=== PATIENT | male | born 1955 | race African-American/Black ===

== ENCOUNTER 2019-03-18 09:25 | Inpatient (IN) | payer MEDICAID ==
[~2019-03-18] VITALS: Ht 175.3 cm; Wt 90.9 kg
[2019-03-18] MEDS ORDERED: HUMULIN 70100 UNIT/1 (09:31)
[2019-03-18 10:15] VITALS: BP 137/81
[2019-03-18] MEDS ORDERED: LASIX40 MG (10:20)
[2019-03-18] MEDS ORDERED: NITROSTAT0.4 MG SL (10:20)
[2019-03-18] MEDS ORDERED: CARDIZEM CD180 MG PO (10:21)
[2019-03-18] MEDS ORDERED: SPIRIVA18 MCG INH (10:22)
[2019-03-18] MEDS ORDERED: ISOSORBIDE MONO30 M1 PO (10:22)
[2019-03-18] MEDS ORDERED: ELIQUIS5 MG PO (10:22)
[2019-03-18] MEDS ORDERED: FOLIC ACID1 MG PO (10:23)
[2019-03-18] MEDS ORDERED: LIPITOR40 MG PO (10:23)
[2019-03-18 10:24] LABS: BASOPHILS 0.2 % (0-2); EOSINOPHILS 1.3 % (0-7); IMMATURE GRANULOCYTES 0.3 % (0-5); LYMPHOCYTES 7.9 % (15-50); MCH 31.5 pg (26.0-34.0); MCHC 31.4 g/dL (31.0-37.0); MCV 100.5 fL (80.0-100.0); NEUTROPHILS 77.3 % (40-80); PLATELET COUNT 213 10x3/uL (130-400); RBC 2.19 10x6/uL (4.20-6.10); RDW 18.9 % (11.5-14.5)
[2019-03-18 10:28] LABS: APTT 44.1 SECONDS (22.8-39.4); INR 1.51 (0.85-1.17); PROTIME 17.6 SECONDS (11.6-15.0)
[2019-03-18 10:32] LABS: ANION GAP 15.6 mmol/L (8-16); BILIRUBIN - TOTAL 0.59 mg/dL (0.2-1.3); CALCIUM 8.3 mg/dL (8.5-10.1); CARBON DIOXIDE 19.6 mmol/L (21.0-32.0); CREATININE - SERUM 2.9 mg/dL (0.6-1.3); POTASSIUM - SERUM 4.2 mmol/L (3.5-5.1); PROTEIN - SERUM 6.9 g/dL (6.4-8.2)
[2019-03-18 10:37] LABS: HEMOGLOBIN 6.9 g/dL (13.5-17.5)
[2019-03-18 10:41] LABS: MAGNESIUM - SERUM 2.3 mg/dL (1.8-2.4); THYROID STIMULATING HORMONE 2.37 uIU/mL (0.36-3.74); TROPONIN-I 0.028 ng/mL (0.000-0.060)
[2019-03-18 11:28] LABS: APPEARANCE SL CLDY (CLEAR); BACTERIA MANY /hpf (NONE SEEN); BILIRUBIN NEGATIVE (NEGATIVE); COLOR YELLOW (YELLOW); EPITHELIAL CELLS OCC /hpf (0-5); GLUCOSE NEGATIVE (NEGATIVE); KETONE NEGATIVE (NEGATIVE); MUCUS <1+ /lpf (NONE SEEN); NITRITE NEGATIVE (NEGATIVE); PROTEIN TRACE mg/dL (NEGATIVE); RED CELLS - URINE 0-5 /hpf (0-5); SPECIFIC GRAVITY 1.015 (1.005-1.020); UROBILINOGEN NORMAL (NORMAL); WHITE CELLS - URINE 25-50 /hpf (0-5)
--- NOTE | 2019-03-18 12:02 | NUR ---
SPOKE WITH DR. AYALA REGARDING PT'S SUSTAINED HR OF 122, INSTRUCTED TO GIVE CARDIZEM PRIOR TO PT LEAVING ED TO ASSIGNED ROOM.
--- NOTE | 2019-03-18 12:30 | NUR ---
PT RECIEVED VIA [facility]CHER FROM ER. ALERT AND ORIENTED X4. NO ACUTE DISTRESS NOTED. WILL ASSESS AND START PLAN OF CARE.
[2019-03-18 12:50] VITALS: BP 102/45; BMI 29.6
--- NOTE | 2019-03-18 14:00 | NUR ---
[facility]
--- NOTE | 2019-03-18 15:03 | NUR ---
SPOKE WITH CONRAD FROM DEPARTMENT OF CORRECTIONS. MEDICATION LIST BEING SENT.
[2019-03-18 17:03] LABS: % SATURATION 17 % (15-55); IRON 43 ug/dl (35-150); TOTAL IRON BIND CAPACITY 240 ug/dl (260-445); UNSAT IRON BIND CAPACITY 197 ug/dl (150-375)
--- NOTE | 2019-03-18 18:44 | NUR ---
PT RECIEVED FROM DIALYSIS. NO DISTRESS NOTED. BED IN LOWEST POSITION. CALL LIGHT WITHIN REACH. WILL CONTINUE TO MONITOR.
--- NOTE | 2019-03-18 19:35 | NUR ---
PT UP IN SHOWER, INSPECTOR PRINTED CIRCUIT BOARDS AT BED SIDE.
[2019-03-18 20:00] VITALS: BP 121/63
--- NOTE | 2019-03-18 20:38 | NUR ---
HS MEDS GIVEN WITH FRESH ICE WATER. BS 93, TURKEY AMISHAWHVENANCIO PROVIDED AT PT REQUEST. GUARD REMAINS AT BED SIDE.
--- NOTE | 2019-03-19 00:31 | NUR ---
PT HAS ASKED MULTIPLE TIMES TO HAVE PIV TAKEN OUT, INFORMED BY THE LEAK GANG SUPERVISOR, HIS NURSE AND THE CHARGE NURSE THAT PER HOSPITAL POLICY ALL PTS NEED TO HAVE IV ACCESS FOR EMERGENCY PURPOSES. PT VERY ARGUMENTATIVE WITH ALL STAFF MEMBERS.
--- NOTE | 2019-03-19 00:56 | NUR ---
CL ANSWERED, PT ASKING TO TALK TO SOFTWARE DESIGN ANALYST. Kennedy TRIMBLE RN, AKSED TO COME SPEAK WITH PT.
--- NOTE | 2019-03-19 01:23 | NUR ---
CL ANSWERED, PT DEMANDING TO GREENSKEEPER LABORER AT THIS INSTANT, ALSO STATED THAT HE NEEDS SOMETHING ELSE BUT CANT THINK OF IT RIGHT NOW BUT WILL KEEP PRESSING HIS CL BUTTON UNTIL HE CAN REMEMBER WHAT HE WANTS.
--- NOTE | 2019-03-19 01:37 | NUR ---
BENADRYL GIVEN EARLY, REMINDED PT THAT HE CAN ONLY HAVE IT EVERY 6 HOURS, THE NEXT TIME HE CAN HAVE BENADRYL IS 07:30.
--- NOTE | 2019-03-19 01:39 | NUR ---
CULINARY ARTIST AT BED SIDE TO SPEAK WITH PT.
--- NOTE | 2019-03-19 01:54 | NUR ---
SOON HEAD OF HUMAN RESOURCES LEFT ROOM, PTS CL CAME ON, PT ASKING FOR COUGH MEDICINE, INFORMED PT THAT HE DIDNT HAVE COUGH SYRUP ORDERED.
--- NOTE | 2019-03-19 04:23 | NUR ---
CL ANSWERED, PT WITH TELEMETRY IN HIS HANDS, PT STATED THAT HE ISNT GOING TO WEAR IT ANY MORE, TELEMETRY BOX RETURNED TO ARCHITECTURAL COATING FINISHER.
[2019-03-19 05:07] LABS: BASOPHILS 0.3 % (0-2); EOSINOPHILS 1.4 % (0-7); HEMATOCRIT 25.4 % (42.0-54.0); IMMATURE GRANULOCYTES 0.3 % (0-5); LYMPHOCYTES 9.2 % (15-50); MCH 30.3 pg (26.0-34.0); MCHC 31.5 g/dL (31.0-37.0); MEAN PLATELET VOLUME 9.3 fL (7.4-10.4); MONOCYTES 11.1 % (2-11); NEUTROPHILS 77.7 % (40-80); PLATELET COUNT 207 10x3/uL (130-400); RDW 20.4 % (11.5-14.5); WBC 7.7 10x3/uL (4.8-10.8)
[2019-03-19 05:35] LABS: MCV 96.2 fL (80.0-100.0); RBC 2.64 10x6/uL (4.20-6.10)
[2019-03-19 05:39] LABS: INR 1.35 (0.85-1.17); PROTIME 16.1 SECONDS (11.6-15.0)
[2019-03-19 06:03] LABS: ANION GAP 17.4 mmol/L (8-16); BILIRUBIN - TOTAL 0.85 mg/dL (0.2-1.3); C-REACTIVE PROTEIN 1.7 mg/dL (0.0-0.9); CALCIUM 8.2 mg/dL (8.5-10.1); CARBON DIOXIDE 21.7 mmol/L (21.0-32.0); CREATININE - SERUM 2.9 mg/dL (0.6-1.3); MAGNESIUM - SERUM 2.2 mg/dL (1.8-2.4); POTASSIUM - SERUM 4.1 mmol/L (3.5-5.1); PROTEIN - SERUM 7.2 g/dL (6.4-8.2)
--- NOTE | 2019-03-19 07:30 | NUR ---
PRESENTS SITTING UP ON SIDE OF BED. ASSESSMENT DONE. C/O SOB. WAS PLACED BACK ON 2L NC WHICH HE TOOK OFF DURING THE NIGHT. DENIES PAIN OR NEEDS AT THIS TIME. CALL LIGHT WITHIN REACH. BED AT LOWEST POSITION. WILL CONTINUE TO MONITOR.
[2019-03-19 08:13] VITALS: BP 131/78
[2019-03-19 09:17] LABS: FOLATE (FOLIC ACID) - SERUM 13.5 ng/mL (>3.0)
--- NOTE | 2019-03-19 09:51 | NUR ---
I have reviewed this patient and I concur with the Shift Assessment completed by the Licensed Practical Nurse today this shift.
--- NOTE | 2019-03-19 11:53 | NUR ---
PT HAS SHACKLES TO BILATERAL LOWER EXTREMITIES. NO REDNESS NOTED TO AREA. ADC GUARD AT BEDSIDE.
--- NOTE | 2019-03-19 12:02 | NUR ---
PT STATES UNABLE TO OBTAIN STOOL SAMPLE FOR OCCULT BLOOD TEST.
[2019-03-19 12:21] VITALS: BP 137/69
[2019-03-19 13:15] VITALS: Ht 175.3 cm; Wt 90.9 kg
--- NOTE | 2019-03-19 14:11 | NUR ---
OXYGEN SAT 94% WHILE SITTING. WENT DOWN TO 84% WHEN PT GOT UP TO WALK. AFTER 2 MINUTES OF REAPPLYING OXYGEN 2L NC OXYGEN SAT CAME BACK UP TO 97%
--- NOTE | 2019-03-19 15:00 | NUR ---
STOOL SAMPLE COLLECTED AND SENT TO LAB. STOOL IS FORMED. BLACK AND TARRY IN APPEARANCE.
[2019-03-19 16:18] LABS: BASOPHILS 0.3 % (0-2); EOSINOPHILS 1.5 % (0-7); HEMOGLOBIN 7.9 g/dL (13.5-17.5); IMMATURE GRANULOCYTES 0.1 % (0-5); LYMPHOCYTES 9.6 % (15-50); MCH 30.6 pg (26.0-34.0); MCHC 31.6 g/dL (31.0-37.0); MCV 96.9 fL (80.0-100.0); MEAN PLATELET VOLUME 9.5 fL (7.4-10.4); NEUTROPHILS 77.5 % (40-80); PLATELET COUNT 198 10x3/uL (130-400); RBC 2.58 10x6/uL (4.20-6.10); RDW 20.5 % (11.5-14.5); WBC 7.4 10x3/uL (4.8-10.8)
[2019-03-19 16:47] VITALS: BP 135/76
--- NOTE | 2019-03-19 16:55 | NUR ---
H&H CALLED TO DR. ADRIEN WU. HE STATES H&H STABLE AND DOES NOT WANT TO ORDER ANY BLOOD AT THIS TIME. WILL RECHECK IN THE MORNING.
[2019-03-19 20:00] VITALS: BP 139/82
[2019-03-20] VITALS: BP 136/80
[2019-03-20 05:00] VITALS: BP 126/80
--- NOTE | 2019-03-20 06:14 | NUR ---
I have reviewed this patient and I concur with the Shift Assessment completed by the Licensed Practical Nurse today this shift.
--- NOTE | 2019-03-20 07:51 | NUR ---
RECIEVED REPORT. PATIENT IS ALERT AND ORIENTED AND THERE IS A GAURD AT BEDSIDE. PATIENT DOES NOT HAVE AN IV IN HIS RIGHT AC. SEARCH AND RESCUE OFFICER TOLD ME IN REPORT THAT HE HAD AN IV IN HIS RIGHT AC, HOWEVER PATIENT REPORTS THAT HE HAS NOT HAD IT SINCE YESTERDAY. HE HAS NO ORDERS IV, AND REPORTS THAT HE DOES NOT WANT AN IV PLACED BECAUSE HE SHOULD BE DISCHARGED AFTER HE GETS DIALYSIS TODAY. HE REPORTS THAT THE DR TOLD HIM HE WOULD GET BLOOD GIVIN DURING DIALYSIS AND THEN BE DISCHARGED BACKT TO THE JAIL.
[2019-03-20 08:22] LABS: BASOPHILS 0.5 % (0-2); EOSINOPHILS 2.1 % (0-7); HEMATOCRIT 24.2 % (42.0-54.0); HEMOGLOBIN 7.6 g/dL (13.5-17.5); IMMATURE GRANULOCYTES 0.4 % (0-5); LYMPHOCYTES 11.4 % (15-50); MCH 30.2 pg (26.0-34.0); MCHC 31.4 g/dL (31.0-37.0); MEAN PLATELET VOLUME 9.5 fL (7.4-10.4); MONOCYTES 16.3 % (2-11); NEUTROPHILS 69.3 % (40-80); PLATELET COUNT 227 10x3/uL (130-400); RBC 2.52 10x6/uL (4.20-6.10); RDW 20.2 % (11.5-14.5); WBC 7.5 10x3/uL (4.8-10.8)
[2019-03-20 08:25] LABS: ALBUMIN 3.1 g/dL (3.4-5.0); BILIRUBIN - TOTAL 0.83 mg/dL (0.2-1.3); CALCIUM 8.6 mg/dL (8.5-10.1); CARBON DIOXIDE 21.1 mmol/L (21.0-32.0); CREATININE - SERUM 3.3 mg/dL (0.6-1.3); MAGNESIUM - SERUM 2.3 mg/dL (1.8-2.4); POTASSIUM - SERUM 4.1 mmol/L (3.5-5.1)
--- NOTE | 2019-03-20 09:03 | NUR ---
PATIENT IS ALERT AND ORIENTED. GANEMOD AT BEDSIDE.
[2019-03-20 09:55] VITALS: BP 136/76
--- NOTE | 2019-03-20 12:25 | NUR ---
BRINGING PT TO DIALYSIS NOW.
[2019-03-20 12:49] VITALS: BP 114/70
--- NOTE | 2019-03-20 18:17 | MORECARE ---
CASE MANAGEMENT DISCHARGE SUMMARY PATIENT: DARSHAN JUAREZ UNIT: [id number] ADM DATE: 03/18/19 AGE: 63 : 57 SEX: M ROOM/BED: D.2129 AUTHOR: AARNO RANGEL PHYSICIAN: REFERRING PHYSICIAN: CAROLYN CÁRDENAS MD DATE OF SERVICE: 03/20/19 Discharge Plan Patient Name: DARSHAN JUAREZ [facility] : 1955 Planned Disposition: Court\Law Enforcement Anticipated Discharge Date: Discharge Date: Expected LOS: Initial Reviewer: [email or web address] Initial Review Date: 03/18/2019 Generated: 03/20/19 7:17 pm Comments DCP- Discharge Planning Updated by [email or web address]: Gisel Mckeon on 03/20/19 5:[address] PATIENT IS TO RETURN TO THE DEPT OF CORRECTIONS AT DISCHARGE IN [place]. Patient Name: DARSHAN JUAREZ Page 10051 at 1817 All edits/amendments must be made on the electronic document DICTATION DATE: 03/20/191815 STATIONARY EQUIPMENT MECHANIC: MARY 03/20/191815 RPT#: [id number] DC DATE: STATUS: ADM IN [facility] [address] [place] [address] END OF REPORT
--- NOTE | 2019-03-20 19:30 | NUR ---
RECEIVED REPORT, WILL ASSUME CARE OF PT, PT IS SITTING ON SIDE OF BED, REFUSING TO WEAR TELEMTRY, BED IS LOW, SRX2, CALL LIGHT IN REACH, WILL CONTINUE PLAN OF CARE, GUARD AT BEDSIDE,
[2019-03-20 20:00] VITALS: BP 116/67
[2019-03-21] VITALS: BP 121/69
--- NOTE | 2019-03-21 02:05 | NUR ---
SLEEPING, BED IS LOW, SRX2, CALL LIGHT IN REACH, WILL CONTINUE PLAN OF CARE
[2019-03-21 04:00] VITALS: BP 129/61
[2019-03-21 04:20] LABS: BASOPHILS 0.5 % (0-2); EOSINOPHILS 1.9 % (0-7); HEMATOCRIT 22.8 % (42.0-54.0); IMMATURE GRANULOCYTES 0.8 % (0-5); LYMPHOCYTES 14.2 % (15-50); MCH 30.7 pg (26.0-34.0); MCV 95.8 fL (80.0-100.0); MEAN PLATELET VOLUME 9.4 fL (7.4-10.4); MONOCYTES 15.7 % (2-11); NEUTROPHILS 66.9 % (40-80); PLATELET COUNT 210 10x3/uL (130-400); RBC 2.38 10x6/uL (4.20-6.10); RDW 20.3 % (11.5-14.5); WBC 7.8 10x3/uL (4.8-10.8)
[2019-03-21 04:22] LABS: HEMOGLOBIN 7.3 g/dL (13.5-17.5)
--- NOTE | 2019-03-21 04:38 | NUR ---
I have reviewed this patient and I concur with the Shift Assessment completed by the Licensed Practical Nurse today this shift.
[2019-03-21 04:40] LABS: ALBUMIN 2.8 g/dL (3.4-5.0); ANION GAP 17.8 mmol/L (8-16); BILIRUBIN - TOTAL 0.59 mg/dL (0.2-1.3); CALCIUM 8.2 mg/dL (8.5-10.1); CARBON DIOXIDE 20.2 mmol/L (21.0-32.0); MAGNESIUM - SERUM 2.3 mg/dL (1.8-2.4); PROTEIN - SERUM 6.9 g/dL (6.4-8.2)
--- NOTE | 2019-03-21 07:36 | NUR ---
RECIEVED REPORT. LOLA IS AT BEDSIDE. PATIENT DOES NOT HAVE AN IV AT THIS TIME. HIS H AND H IS LOW, AND HE RECIEVED BLOOD LAST SATURDAY. PATIENT IS RESTING WITH EYES CLOSED AT THIS TIME.
[2019-03-21 10:08] VITALS: BP 108/67
--- NOTE | 2019-03-21 12:46 | NUR ---
ANTHONY GONZALEZ ROUNDED AND I TOLD HER THIS PATIENT IS REFUSING AN IV AT THIS TIME. HE WANTS TO WAIT TO GET BLOOD WHEN HE GOES TO DIALYSIS ON SATURDAY. HE HAS TO SEE GASTROINTROLOGIST ON SATURDAY. LOLA IS AT BEDSIDE. PATIENT DENIES ANY OTHER NEEDS AT THIS TIME.
--- NOTE | 2019-03-21 14:05 | NUR ---
IV PLACED IN RIGHT FOREARM. PATIENT AGREED TO HAVE IV PLACED WHEN HE WAS INFORMED THAT HE HAS A NEW ORDER FOR ANTIBIOTICS. 22G ONE STICK
--- NOTE | 2019-03-21 16:24 | NUR ---
IV START IN RIGHT FOREARM BECAME DISLODGED SOON TRIED TO INFUSE THE ANTIBIOTIC. CHARGE NURSE MONICA ATTEMPTED IV AND WAS NOT ABLE TO START ONE. CALLED INSURANCE UNDERWRITER SALES AND SHE SAID SHE WOULD SEND SOMEONE. CALLED ICU AND THEY SAID THEY WOULD COME OVER AND TRY. REMOVED THE DISLODGED IV FROM PATIENTES RIGHT FOREARM. WAITING ON ICU.
--- NOTE | 2019-03-21 17:04 | NUR ---
RT FOREARM 20 G IV STARTED BY ICU NURSE. PATIENT TOLERATED.
[2019-03-21 18:55] VITALS: BP 126/74
[2019-03-21 20:00] VITALS: BP 114/62
--- NOTE | 2019-03-21 21:47 | NUR ---
INITIAL ROUNDS COMPLETED AT 1909 HRS. PT EXTREMELY UPSET THAT HE DID NOT GET A DOUBLE MEAL TRAY WITH DINNER. DEMANDED 1 TERRELL. INFORMED PT THAT THE KITCHEN HAD ALREADY LEFT. INFORMED PT THAT WILL SEE WHAT WAS AVAILABLE. PT THE STATED "YOU BETTER.". SANDWICH TRAY PROVIDED WITH A LEMON-UNGA SODA. ASSESSMENT COMPLETED AT 1954 HRS. VSS. PT ALERT AND ORIENTED TO PERSON,PLACE AND TIME. STERLING. L ARM AVF WITH GOOD BRUIT AND THRILL. LUNGS DIMINISHED IN BASES BILAT. ZOSYN INFUSING OVER 4 HRS TO RFA. VERY FAINT BILAT PEDAL PULSES NOTED. PM FSBS 168. 2 UNITS HUMALOG GIVEN SUB-Q TO ABD PER S/S. PM MEDS GIVEN. PT CURRENTLY WATCHING TV. CALL LIGHT WITHIN REACH.
--- NOTE | 2019-03-21 21:55 | NUR ---
PT REFUSES TO WEAR TELEMETRY.
[2019-03-22] VITALS: BP 106/50
--- NOTE | 2019-03-22 00:54 | NUR ---
SHOWER DONE, BED LINENS CHANGED. PT CURRENTLY RESTING WITH EYES CLOSED. RESP EVEN AND REGULAR. SR UP X2, CALL LIGHT WITHIN REACH.
--- NOTE | 2019-03-22 02:30 | NUR ---
PT AWAKE; DENIES ANY DISCOMFORT. CALL LIGHT WITHIN REACH.
[2019-03-22 04:00] VITALS: BP 130/59
--- NOTE | 2019-03-22 04:31 | NUR ---
PT RESTING WITH EYES CLOSED. RESP EVEN AND REGULAR. SR UP X2, CALL LIGHT WITHIN REACH.
--- NOTE | 2019-03-22 06:42 | NUR ---
VSS THROUGHOUT NIGHT. PT DENIED ANY DISCOMFORT. AM FSBS 120. NO COVERAGE NECESSARY. NEEDS MET; WILL CONTINUE TO MONITOR.
--- NOTE | 2019-03-22 07:10 | NUR ---
REPORT RECEIVED FROM ACCOUNT SUPPORT MANAGER AND PATIENT CARE ASSUMED. PATIENT LAYING IN BED ON LEFT SIDE WITH EYES CLOSED AND BREATHING EVENLY PATIENT IS STABLE AND VSS. WILL CONTINUE WITH PLAN OF CARE. SR UP X 2 BED IN LOW POSTION AND CALL LIGHT IN REACH.
[2019-03-22 07:52] LABS: ANION GAP 17.8 mmol/L (8-16); BILIRUBIN - TOTAL 0.59 mg/dL (0.2-1.3); CALCIUM 8.2 mg/dL (8.5-10.1); CARBON DIOXIDE 22.2 mmol/L (21.0-32.0); CREATININE - SERUM 3.7 mg/dL (0.6-1.3); MAGNESIUM - SERUM 2.2 mg/dL (1.8-2.4)
[2019-03-22 08:28] LABS: BASOPHILS 0.6 % (0-2); EOSINOPHILS 1.4 % (0-7); HEMATOCRIT 23.6 % (42.0-54.0); IMMATURE GRANULOCYTES 0.3 % (0-5); LYMPHOCYTES 13.9 % (15-50); MCH 30.5 pg (26.0-34.0); MCHC 30.9 g/dL (31.0-37.0); MCV 98.7 fL (80.0-100.0); MEAN PLATELET VOLUME 9.5 fL (7.4-10.4); MONOCYTES 14.9 % (2-11); NEUTROPHILS 68.9 % (40-80); PLATELET COUNT 215 10x3/uL (130-400); RBC 2.39 10x6/uL (4.20-6.10); RDW 20.3 % (11.5-14.5); WBC 6.9 10x3/uL (4.8-10.8)
[2019-03-22 08:30] LABS: HEMOGLOBIN 7.3 g/dL (13.5-17.5)
[2019-03-22 08:51] VITALS: BP 112/66
[2019-03-22 12:07] VITALS: BP 115/70
--- NOTE | 2019-03-22 13:48 | NUR ---
PATIENT IN BED RESTING COMFORTABLY WITH EYES CLOSED AND BREATHING EVENLY. WILL CONTINUE TO MONITOR. SR UP X 2 BED IN LOW POSTION AND CALL LIGHT IN REACH.
[2019-03-22 16:59] VITALS: BP 126/60
--- NOTE | 2019-03-22 19:50 | NUR ---
RECEIVED REPORT, WILL ASSUME CARE OF PT, SITTING ON SIDE OF BED, DENIES ANY NEEDS, CALL LIGHT IN REACH, WILL CONTINUE PLAN OF CARE
[2019-03-22 20:00] VITALS: BP 130/75
[2019-03-23] VITALS: BP 128/47
--- NOTE | 2019-03-23 03:58 | NUR ---
I have reviewed this patient and I concur with the Shift Assessment completed by the Licensed Practical Nurse today this shift.
[2019-03-23 04:00] VITALS: BP 124/74
[2019-03-23 05:01] LABS: BASOPHILS 0.2 % (0-2); EOSINOPHILS 1.7 % (0-7); HEMATOCRIT 23.9 % (42.0-54.0); IMMATURE GRANULOCYTES 0.3 % (0-5); LYMPHOCYTES 9.7 % (15-50); MCH 30.6 pg (26.0-34.0); MCHC 31.4 g/dL (31.0-37.0); MCV 97.6 fL (80.0-100.0); MONOCYTES 13.8 % (2-11); NEUTROPHILS 74.3 % (40-80); PLATELET COUNT 195 10x3/uL (130-400); RBC 2.45 10x6/uL (4.20-6.10); RDW 19.8 % (11.5-14.5); WBC 6.4 10x3/uL (4.8-10.8)
[2019-03-23 05:10] LABS: HEMOGLOBIN 7.5 g/dL (13.5-17.5)
--- NOTE | 2019-03-23 05:15 | NUR ---
CONSENTS SIGNED, PT IS GET IN SHOWER
[2019-03-23 05:17] LABS: ALBUMIN 2.8 g/dL (3.4-5.0); ANION GAP 17.4 mmol/L (8-16); BILIRUBIN - TOTAL 0.73 mg/dL (0.2-1.3); CALCIUM 8.1 mg/dL (8.5-10.1); CARBON DIOXIDE 22.4 mmol/L (21.0-32.0); CREATININE - SERUM 3.7 mg/dL (0.6-1.3); POTASSIUM - SERUM 3.8 mmol/L (3.5-5.1); PROTEIN - SERUM 6.7 g/dL (6.4-8.2)
--- NOTE | 2019-03-23 07:45 | NUR ---
[facility] CALLED TO PREOP PT. PT PREOP ORDERED. [facility] HERE TO TAKE PT.
[2019-03-23 08:00] VITALS: BP 116/58; BP 124/74
--- NOTE | 2019-03-23 08:30 | NUR ---
PT RETURNED FROM GI LAB VSS AND WNL
--- NOTE | 2019-03-23 09:48 | NUR ---
PT SITTING ON SIDE OF BED EATING BREAKFAST. SHIFT ASSESSMENT PERFORMED. DENIES ANY NEEDS AT THIS TIME, WILL CONT TO FOLLOW POC
[2019-03-23 12:12] VITALS: BP 124/61
--- NOTE | 2019-03-23 13:40 | NUR ---
DIALYSIS NURSE HERE AND STARTED DIALYSIS. FIRST UNIT OF PRBC OBTAINED AND VERIFIED X2 NURSES. GIVEN TO DIALYSIS NURSE TO ADMINISTER.
--- NOTE | 2019-03-23 13:56 | NUR ---
PT IS HAVING FREQUENT VS TAKEN AT THIS TIME DUE TO CURRENTLY RECIEVING DIALYSIS. PT IS COMPLAINING OF THE PAIN. CALLED DANA RUST TO ASK FOR MEDICATION. DANA RUST SAID SHE WOULD LOOK AT THE CHART
[2019-03-23] MEDS ORDERED: MACRODANTIN100 MG PO (15:32)
[2019-03-23 16:24] VITALS: BP 153/79
--- NOTE | 2019-03-23 17:56 | NUR ---
DISCHARGE INSTRUCTIONS REVIEWED WITH PT AND ALL QUESTIONS ANSWERED. PIV REMOVED WITH CATHETER TIP INTACT. [facility] CALLED FOR PRISION TRANSPORT
--- NOTE | 2019-03-23 20:44 | NUR ---
PT LEFT UNIT VIA WHEELCHAIR, WITH ALL BELONGINS, ACCOMPANIED BY TWO GAURDS, NAD NOTED.
--- NOTE | 2019-03-24 08:06 | MORECARE ---
CASE MANAGEMENT DISCHARGE SUMMARY PATIENT: DARSHAN JUAREZ UNIT: [id number] ADM DATE: 03/18/19 AGE: 63 : 57 SEX: M ROOM/BED: D.2129 AUTHOR: AARON RANGEL PHYSICIAN: REFERRING PHYSICIAN: CAROLYN CÁRDENAS MD DATE OF SERVICE: 03/24/19 Discharge Plan Patient Name: DARSHAN JUAREZ [facility] : 1955 Planned Disposition: Court\Law Enforcement Anticipated Discharge Date: 03/23/19 Discharge Date: 03/23/2019 Expected LOS: 5 Initial Reviewer: [email or web address] Initial Review Date: 03/18/2019 Generated: 03/24/19 9:06 am Comments DCP- Discharge Planning Updated by [id number]: Gisel Mckeon on 03/20/19 5:[address] PATIENT IS TO RETURN TO THE DEPT OF CORRECTIONS AT DISCHARGE IN [place]. Last DP export: 03/20/19 5:17 p Patient Name: DARSHAN JUAREZ Page 64524 at 0806 All edits/amendments must be made on the electronic document DICTATION DATE: 03/24/19804 LIFE SUPPORT TECHNICIAN: MARY 03/24/19804 RPT#: [id number] DC DATE:03/23/19 STATUS: DIS IN [facility] [address] [place] [address] END OF REPORT
== END 2019-03-23 20:44 | DRG 698 ==
LOC: D.ER 09:25 → D.M2 11:02
PROVIDERS: Family Medicine; ADMIT Family Medicine; ATTEND Family Medicine
PROC: 5A1D70Z Performance of Urinary Filtration, Intermittent, Less than 6 Hours Per Day (ICD-10-PCS; principal; 2019-03-18)
PROC: 0DJ08ZZ Inspection of Upper Intestinal Tract, Via Natural or Artificial Opening Endoscopic (ICD-10-PCS; 2019-03-23)
DX: E11.22 Type 2 diabetes mellitus with diabetic chronic kidney disease (principal); J96.01 Acute respiratory failure with hypoxia; I12.0 Hypertensive chronic kidney disease with stage 5 chronic kidney disease or end stage renal disease; J44.1 Chronic obstructive pulmonary disease with (acute) exacerbation; K92.2 Gastrointestinal hemorrhage, unspecified; N18.6 End stage renal disease; Z99.2 Dependence on renal dialysis; D63.1 Anemia in chronic kidney disease; N25.81 Secondary hyperparathyroidism of renal origin; E11.65 Type 2 diabetes mellitus with hyperglycemia; Z87.891 Personal history of nicotine dependence; K21.0 Gastro-esophageal reflux disease with esophagitis; K29.70 Gastritis, unspecified, without bleeding; D53.9 Nutritional anemia, unspecified; E11.43 Type 2 diabetes mellitus with diabetic autonomic (poly)neuropathy; K31.84 Gastroparesis; R82.71 Bacteriuria; B96.20 Unspecified Escherichia coli [E. coli] as the cause of diseases classified elsewhere

== ENCOUNTER 2019-04-27 17:49 | Inpatient (IN) | payer MEDICAID ==
[~2019-04-27] VITALS: Ht 175.3 cm; Wt 83.0 kg
[~2019-04-27 17:49] MED LIST: CARDIZEM CD180 MG PO; ELIQUIS5 MG PO; FOLIC ACID1 MG PO; HUMULIN 70100 UNIT/1; ISOSORBIDE MONO30 M1 PO; LASIX40 MG; LIPITOR40 MG PO; MACRODANTIN100 MG PO; NITROSTAT0.4 MG SL; SPIRIVA18 MCG INH
[2019-04-27 18:26] LABS: BASOPHILS 0.5 % (0-2); EOSINOPHILS 1.6 % (0-7); HEMATOCRIT 20.1 % (42.0-54.0); IMMATURE GRANULOCYTES 0.3 % (0-5); LYMPHOCYTES 14.5 % (15-50); MCH 32.5 pg (26.0-34.0); MCHC 31.3 g/dL (31.0-37.0); MCV 103.6 fL (80.0-100.0); MEAN PLATELET VOLUME 10.1 fL (7.4-10.4); MONOCYTES 9.7 % (2-11); NEUTROPHILS 73.4 % (40-80); PLATELET COUNT 181 10x3/uL (130-400); RDW 17.9 % (11.5-14.5); WBC 7.5 10x3/uL (4.8-10.8)
[2019-04-27 18:52] LABS: ANION GAP 12.8 mmol/L (8-16); BILIRUBIN - TOTAL 0.64 mg/dL (0.2-1.3); CALCIUM 8.2 mg/dL (8.5-10.1); CARBON DIOXIDE 23.9 mmol/L (21.0-32.0); CREATININE - SERUM 3.1 mg/dL (0.6-1.3); POTASSIUM - SERUM 4.7 mmol/L (3.5-5.1); PROTEIN - SERUM 6.4 g/dL (6.4-8.2)
[2019-04-27 18:56] LABS: TROPONIN-I 0.024 ng/mL (0.000-0.060)
[2019-04-27 18:58] LABS: HEMOGLOBIN 6.3 g/dL (13.5-17.5); RBC 1.94 10x6/uL (4.20-6.10)
--- NOTE | 2019-04-27 19:08 | NUR ---
HANDOFF REPORT GIVEN TO RICHARD ROJO.
--- NOTE | 2019-04-27 19:30 | NUR ---
INFORMED PT OF NEED FOR STOOL SAMPLE. REFUSED AT THIS TIME. EDP NOTIFIED.
[2019-04-27 20:00] VITALS: BP 120/69; BP 126/83
[2019-04-27 20:05] LABS: % SATURATION 65 % (15-55); IRON 197 ug/dl (35-150); TOTAL IRON BIND CAPACITY 301 ug/dl (260-445); UNSAT IRON BIND CAPACITY 104 ug/dl (150-375)
--- NOTE | 2019-04-27 20:20 | NUR ---
PT NOTIFIED OF BLOOD TRANSFUSION ORDER. VOICED UNDERSTANDING.
--- NOTE | 2019-04-27 20:54 | NUR ---
REPORT CALLED TO DIMITRI VERDIN AT THIS TIME.
--- NOTE | 2019-04-27 20:54 | NUR ---
REPORT RECIEVED FROM ER.
--- NOTE | 2019-04-27 22:40 | NUR ---
PATIENT'S IV TO RIGHT HAND INFILTRATED. IV TIP INTACT. NEW IV TO RIGHT AC X2 ATTEMPTS.
[2019-04-28] VITALS (7 sets, daily range): BP systolic 112–147; BP diastolic 55–78; Ht 175.3 cm; Wt 83.0 kg
--- NOTE | 2019-04-28 02:34 | NUR ---
PATIENT LAYING IN BED. NO COMPLAINTS AT THIS TIME. NO DISTRESS NOTED.
--- NOTE | 2019-04-28 05:15 | NUR ---
I have reviewed this patient and I concur with the Shift Assessment completed by the Licensed Practical Nurse today this shift.
[2019-04-28 06:32] LABS: BASOPHILS 0.5 % (0-2); EOSINOPHILS 1.3 % (0-7); HEMATOCRIT 23.1 % (42.0-54.0); IMMATURE GRANULOCYTES 0.1 % (0-5); MCH 31.8 pg (26.0-34.0); MONOCYTES 9.9 % (2-11); NEUTROPHILS 71.2 % (40-80); PLATELET COUNT 185 10x3/uL (130-400); RDW 19.4 % (11.5-14.5); WBC 7.6 10x3/uL (4.8-10.8)
[2019-04-28 06:41] LABS: RBC 2.33 10x6/uL (4.20-6.10)
[2019-04-28 06:42] LABS: HEMOGLOBIN 7.4 g/dL (13.5-17.5); MCV 99.1 fL (80.0-100.0)
[2019-04-28 06:57] LABS: ANION GAP 15.9 mmol/L (8-16); CALCIUM 8.4 mg/dL (8.5-10.1); CARBON DIOXIDE 20.6 mmol/L (21.0-32.0); CREATININE - SERUM 3.4 mg/dL (0.6-1.3); POTASSIUM - SERUM 4.5 mmol/L (3.5-5.1)
--- NOTE | 2019-04-28 07:00 | NUR ---
RECEIVED REPORT. ASSUMED CARE OF PATIENT. PATIENT OOB TO RESTROOM. PATIENT HAS GAURD AT BEDSIDE.
--- NOTE | 2019-04-28 08:42 | NUR ---
PATIENT WANTING TO KNOW WHY HE CAN'T HAVE ANY EGGS, EXPLAINED HE CAME IN WITH A GI BLEED, WE DO NOT FEED PATIENTS REGULAR FOOD DURING AN ACUTE EPISODE OF A GI BLEED. CLEAR LIQUIDS IS WHAT WE ARE ABLE TO GIVE YOU. PATIENT STATES HE CAN'T TAKE THAT AND HE WILL JUST SIGN OUT. PATIENT CONTINUES WITH LOLA AT BEDSIDE.
--- NOTE | 2019-04-28 10:47 | NUR ---
SPOKE WITH GUEVARA IN DIALYSIS, PATIENT WILL HAVE TO BE DONE AT BEDSIDE DUE TO ISOLATION AND THEY ARE LOOKING FOR EMLA CREAM TO HELP NUMB THE PATIENTS ARM.
--- NOTE | 2019-04-28 11:41 | NUR ---
FSBS 112. NO INSULIN PER SLIDING SCALE. NEW URINAL PROVIDED TO PATIENT AND INSTRUCTED HIM ON THE NEED FOR A URINE SPECIMEN. PATIENT REQUESTING BENADRYL FOR ITCHING OR HE IS REFUSING DIALYSIS.
--- NOTE | 2019-04-28 12:24 | NUR ---
NOTIFIED LAB THAT BLOOD IS TO BE TRANSFUSED DURING DIALYSIS PER ORDERS. SPOKE TO KEVIN.
--- NOTE | 2019-04-28 12:41 | NUR ---
SPOKE WITH RENAL AVIATION SAFETY OFFICER AND GOT BENADYRL CHANGED TO PRN.
[2019-04-28 12:58] LABS: APPEARANCE CLEAR (CLEAR); BILIRUBIN NEGATIVE (NEGATIVE); COLOR YELLOW (YELLOW); GLUCOSE NEGATIVE (NEGATIVE); KETONE NEGATIVE (NEGATIVE); NITRITE NEGATIVE (NEGATIVE); PROTEIN 2+ mg/dL (NEGATIVE); SPECIFIC GRAVITY 1.015 (1.005-1.020); UROBILINOGEN NORMAL (NORMAL)
[2019-04-28 12:59] LABS: BACTERIA MODERATE /hpf (NONE SEEN); EPITHELIAL CELLS OCC /hpf (0-5); MUCUS <1+ /lpf (NONE SEEN); WHITE CELLS - URINE 0-5 /hpf (0-5)
[2019-04-28 13:54] LABS: HEMATOCRIT 23.3 % (42.0-54.0)
--- NOTE | 2019-04-28 14:00 | NUR ---
REFUSED SCD'S PER OTTO/RN
[2019-04-28 14:18] LABS: HEMOGLOBIN 7.4 g/dL (13.5-17.5)
--- NOTE | 2019-04-28 15:28 | NUR ---
STILL AWAITING DIALYSIS TO COME TO UNIT AND PROVIDE DIALYSIS AND TRANSFUSIONS TO PATIENT. RESTING IN BED WITH EYES CLOSED. NO DISTRESS.
--- NOTE | 2019-04-28 16:36 | NUR ---
FSBS 79. NO INSULIN PER SLIDING SCALE.
--- NOTE | 2019-04-28 17:15 | NUR ---
DIALYSIS NURSE AT BEDSIDE. PATIENT UPSET THAT HE CANNOT EAT ANYTHING OTHER THAN CLEAR LIQUIDS. PATIENT STATES AFTER HE GETS HIS DIALYSIS AND 2 UNITS OF BLOOD HE IS SIGNING OUT AMA BECAUSE WE WILL NOT LET HIM EAT ANYTHING. THIS CONSUMER SERVICES ADVISOR HAS EXPLAINED TO MINDY MULTIPLE TIMES TODAY, IN FRONT OF THE OFFICER AT HIS BEDSIDE, THAT HE IS ON CLEAR LIQUIDS FOR A GI BLEED. PATIENT ACTS IF HE IS UNAWARE OF WHY HE IS ON A CLEAR LIQUID DIET. CALL LIGHT WITHIN REACH. DIALYSIS NURSE PREPARING TO DIALYSIS MACHINE AT THIS TIME.
--- NOTE | 2019-04-28 17:51 | NUR ---
PATIENT RECEIVING 1ST UNIT OF PRBC ON DIALYSIS AT THIS TIME ORDERED. NO DISTRESSED.
--- NOTE | 2019-04-28 18:37 | NUR ---
PATIENT RECEIVED FIRST UNIT OF BLOOD VIA DIALYSIS MACHINE. DIALYSIS NURSE SUAD COMES TO THE NURSES STATION TO REPORT THAT THE PATIENT RECEIVED THE FIRST UNIT BUT HE IS PULLING AT HIS ARM AND PULLED THE TUBES LOOSE AND I HAD TO STOP THE MACHINE. 2ND UNIT OF BLOOD RETRIEVED AT 1820 AND BROUGHT TO THE DIALYSIS NURSE. THIS NURSE SPIKED THE 2ND UNIT AFTER ALL CHECKS WERE COMPLETED PER POLICY AND THE TUBING ON THE DILAYSIS MACHINE HAS CLOTTED. DIALYSIS NURSE WENT DOWNSTAIRS TO GET NEW TUBING. PATIENT REFUSES TO BE RESTUCK AND NOW SAYS HE DOESN'T WANT THE 2ND UNIT BECAUSE HE IS TIRED OF BEING STUCK. PATIENT ENCOURAGED TO LET DIALYSIS NURSE RESTICK HIM AND DELIVER THE 2ND UNIT OF BLOOD AND PATIENT REFUSED, STATING HE WOULD GET IT AT [facility]. THERE ARE NO DISCHARGE ORDERS ON PATIENT. PATEITN IS IRRATIONAL AND UNCOOPERATIVE. THE GAURD STATES PATIENT CAN BECOME IRRATIONAL AND UNCOOPERATIVE VERY OFTEN. 2ND UNIT OF BLOOD UNABLE TO BE RETUNRED TO THE BLOOD BANK IT WAS SPIKED. 2ND UNIT OF BLOOD DISCARDED.
--- NOTE | 2019-04-28 19:00 | NUR ---
PATIENT SITTING UP TO SIDE OF BED. PATIENT HAS NO COMPLAINTS AT THIS TIME. NO DISTRESS NOTED.
[2019-04-28 23:51] LABS: HEMATOCRIT 26.8 % (42.0-54.0)
[2019-04-29] VITALS: BP 117/80
--- NOTE | 2019-04-29 01:40 | NUR ---
I have reviewed this patient and I concur with the Shift Assessment completed by the Licensed Practical Nurse today this shift.
--- NOTE | 2019-04-29 02:00 | NUR ---
PATIENT LAYING IN BED. EYES CLOSED, CHEST RISING AND FALLING. NO DISTRESS NOTED.
[2019-04-29 04:00] VITALS: BP 142/76
--- NOTE | 2019-04-29 05:30 | NUR ---
PATIENT LAYING IN BED, EYES CLOSED, CHEST RISING AND FALLING. NO DISTRESS NOTED.
[2019-04-29 06:27] LABS: BASOPHILS 0.6 % (0-2); EOSINOPHILS 2.1 % (0-7); HEMATOCRIT 24.6 % (42.0-54.0); HEMOGLOBIN 7.9 g/dL (13.5-17.5); IMMATURE GRANULOCYTES 0.3 % (0-5); LYMPHOCYTES 12.9 % (15-50); MCH 31.3 pg (26.0-34.0); MCHC 32.1 g/dL (31.0-37.0); MCV 97.6 fL (80.0-100.0); MEAN PLATELET VOLUME 9.8 fL (7.4-10.4); MONOCYTES 12.2 % (2-11); NEUTROPHILS 71.9 % (40-80); PLATELET COUNT 166 10x3/uL (130-400); RBC 2.52 10x6/uL (4.20-6.10); RDW 20.1 % (11.5-14.5); WBC 7.1 10x3/uL (4.8-10.8)
[2019-04-29 06:43] LABS: ANION GAP 14.1 mmol/L (8-16); CALCIUM 8.5 mg/dL (8.5-10.1); CREATININE - SERUM 3.6 mg/dL (0.6-1.3); POTASSIUM - SERUM 4.1 mmol/L (3.5-5.1)
--- NOTE | 2019-04-29 07:00 | NUR ---
SHIFT ASSESSMENT COMPLETED. PT CARE ASSUMED. PT SITTING UP IN BED, AWAKE AND ALERT, GUARD AT BEDSIDE. CALL LIGHT WITHIN REACH, WILL CONTINUE TO OBSERVE.
[2019-04-29 08:44] VITALS: BP 115/68
[2019-04-29 12:27] VITALS: BP 129/79
[2019-04-29 15:21] LABS: HEMATOCRIT 22.5 % (42.0-54.0)
[2019-04-29 15:28] LABS: HEMOGLOBIN 7.2 g/dL (13.5-17.5)
--- NOTE | 2019-04-29 19:22 | NUR ---
PT RECEIVING DIALYSIS. NO S/S OF DISTRESS. PT DENIES ANY NEEDS. GUARD AND DIALYSIS NURSE AT BEDSIDE. WILL CPOC
[2019-04-29 20:00] VITALS: BP 118/63
--- NOTE | 2019-04-29 20:05 | NUR ---
BLOOD BANK CALLED AND STATED BLOOD READY.
--- NOTE | 2019-04-29 20:18 | NUR ---
FAISAL DIALYSIS NURSE STARTING 1ST UNIT OF PRBC, VITALS WITHIN NORMAL LIMITS. PT ASKING FOR A BENADRYL. WILL CHECK ORDERS.
--- NOTE | 2019-04-29 21:11 | NUR ---
2ND UNIT OF PRBC STARTED BY DIALYSIS NURSE FAISAL. PT HAS NO S/S OF DISTRESS. NO CHANGE IN VITALS.
--- NOTE | 2019-04-29 21:48 | NUR ---
FSBS IS 140 NO INSULIN NEEDED. DIALYSIS COMPLETE. PT HAS NO S/S OF DISTRESS. SITTING ON SIDE OF BED SPEAKING TO DIALYSIS NURSE. GUARD AT BED SIDE. PT WILL CALL FOR ASSIST WHEN NEEDED.
--- NOTE | 2019-04-29 23:01 | NUR ---
PT DOES NOT HAVE IV ACCESS AND DENIES NEW IV PLACEMENT. PROTONIX WILL NOT BE GIVEN TONIGHT DUE TO THIS REASON
[2019-04-29 23:18] LABS: HEMATOCRIT 27.9 % (42.0-54.0); HEMOGLOBIN 9.3 g/dL (13.5-17.5)
[2019-04-30] VITALS: BP 131/81
[2019-04-30 04:00] VITALS: BP 112/55
--- NOTE | 2019-04-30 05:37 | NUR ---
FSBS 165. PT TX WITH 4 UNITS OF INSULIN, PT ADMIN SELF WITH CORRECT TECHNIQUE IN RLQ. PT REQUESTED BENADRYL. NO FURTHER NEEDS VOICED AT THIS TIME.
--- NOTE | 2019-04-30 07:19 | NUR ---
INITIAL ROUNDING, WHITE BOARD UPDATED. GUARD AT THE BEDSIDE. FRESH ICE WATER PROVIDED. PATIENT IS SITTING ON THE SIDE OF THE BED, PUTTING ON NON SLIP SOCKS. HE DENIES PAIN. CALL LIGHT IN REACH
--- NOTE | 2019-04-30 09:26 | MORECARE ---
CASE MANAGEMENT DISCHARGE SUMMARY PATIENT: DARSHAN JUAREZ UNIT: [id number] ADM DATE: 04/27/19 AGE: 63 : 57 SEX: M ROOM/BED: D.2135 AUTHOR: ARAON RANGEL PHYSICIAN: REFERRING PHYSICIAN: HERON OSBORN MD DATE OF SERVICE: 04/30/19 Discharge Plan Patient Name: DARSHAN JUAREZ [facility] : 1955 Planned Disposition: Court\Law Enforcement Anticipated Discharge Date: Discharge Date: Expected LOS: Initial Reviewer: [email or web address] Initial Review Date: 04/27/2019 Generated: 04/30/19 10:26 am Patient Name: DARSHAN JUAREZ Page [id number] at 0926 All edits/amendments must be made on the electronic document DICTATION DATE: 04/30/19925 MARBLE INSTALLER: MARY 04/30/19925 RPT#: [id number] DC DATE: STATUS: ADM IN [facility] [address] [place] [address] END OF REPORT
--- NOTE | 2019-04-30 09:33 | MORECARE ---
CASE MANAGEMENT DISCHARGE SUMMARY PATIENT: DARSHAN JUAREZ UNIT: [id number] ADM DATE: 04/27/19 AGE: 63 : 57 SEX: M ROOM/BED: D.2135 AUTHOR: CLAIRE,DOC PHYSICIAN: REFERRING PHYSICIAN: HERON OSBORN MD DATE OF SERVICE: 04/30/19 Discharge Plan Patient Name: DARSHAN JUAREZ Facility: [facility]:[place] : 1955 Planned Disposition: Court\Law Enforcement Anticipated Discharge Date: Discharge Date: Expected LOS: Initial Reviewer: [email or web address] Initial Review Date: 04/27/2019 Generated: 04/30/19 10:32 am Comments DCP- Discharge Planning Updated by [email or web address]: Nik Nixon on 04/30/19 8:[address] Patient Name: DARSHAN JUAREZ Encounter No: [id number] : 1955 Primary Insurance: MEDICAID RESIDENTIAL PENDING Anticipated DC Date: Planned Disposition: Court\Law Enforcement External Planned Provider: [facility] DISCHARGE PLANNING NOTE: CM MET WITH PT AND GUARD IN ROOM. PT REPORTS CURRENT INCARCERATION AT RESIDENTIAL UNIT IN [place] WHERE HE RECEIVES DIALYSIS ON SATURDAY, SATURDAY, SATURDAY SCHEDULE. PT WILL RETURN AT DISCHARGE. RESIDENTIAL TO ARRANGE TRANSPORTATION AT DISCHARGE. NO NEEDS NOTED AT THIS TIME. PT DENIES DISCHARGE NEEDS. PT REPORTS BEING READY TO DISCHARGE FROM HOSPITAL. CM EXPLAINED THAT THE DOCTOR WOULD SEE PT TODAY AND DISCUSS TREATMENT AND PLANNED DISCHARGE WITH HIM. PT REPORTS UNDERSTANDING. PT TO DISCHARGE BACK TO RESIDENTIAL UNIT IN [facility] TO ARRANGE TRANSPORTATION AT DISCHARGE. CM TO FOLLOW AND ASSIST NEEDED. NIK NIXON, CASE MANAGEMENT DCPIA - Discharge Planning Initial Assessment Updated by [email or web address]: Nik Nixon on 04/30/19 9:26 am * Is the patient Alert and Oriented? Yes * How many steps to enter\exit or inside your home? NONE * [facility] * Pharmacy [facility] * Preadmission Environment Other * Other Environment [facility] * Facility Name [facility], [place] * ADLs Independent * Equipment None * Other Equipment NONE * List name and contact numbers for known caregivers / representatives who currently or will assist patient after discharge: [facility], [facility], * Verbal permission to speak to the caregivers and representatives has been obtained from the patient. N/A * Community resources currently utilized Other * Please name any agencies selected above. [facility]IS, RESIDENTIAL UNIT, [facility] * Additional services required to return to the preadmission environment? No * Can the patient safely return to the preadmission environment? Yes * Has this patient been hospitalized within the prior 30 days at any hospital? No Last DP export: 04/30/19 8:26 a Patient Name: DARSHAN JUAREZ Page [phone] at 0933 All edits/amendments must be made on the electronic document DICTATION DATE: 04/30/19931 DIRECTOR OF STATE: MARY 04/30/19931 RPT#: [id number] DC DATE: STATUS: ADM IN [facility] [address] [place] [address] END OF REPORT
[2019-04-30 10:01] LABS: BASOPHILS 0.3 % (0-2); EOSINOPHILS 2.2 % (0-7); HEMATOCRIT 27.8 % (42.0-54.0); HEMOGLOBIN 9.1 g/dL (13.5-17.5); IMMATURE GRANULOCYTES 0.4 % (0-5); LYMPHOCYTES 8.1 % (15-50); MCH 31.2 pg (26.0-34.0); MCHC 32.7 g/dL (31.0-37.0); MEAN PLATELET VOLUME 9.3 fL (7.4-10.4); MONOCYTES 17.4 % (2-11); NEUTROPHILS 71.6 % (40-80); PLATELET COUNT 139 10x3/uL (130-400); RBC 2.92 10x6/uL (4.20-6.10); RDW 19.7 % (11.5-14.5); WBC 7.1 10x3/uL (4.8-10.8)
[2019-04-30 10:05] LABS: MCV 95.2 fL (80.0-100.0)
[2019-04-30 10:19] LABS: ANION GAP 13.3 mmol/L (8-16); CARBON DIOXIDE 23.1 mmol/L (21.0-32.0); CREATININE - SERUM 3.2 mg/dL (0.6-1.3)
[2019-04-30 10:30] LABS: POTASSIUM - SERUM 3.4 mmol/L (3.5-5.1)
--- NOTE | 2019-04-30 10:35 | NUR ---
THE PATIENT AND THE GUARD BOTH REQUESTING AN AMA FORM FOR THE PATIENT TO SIGN BECAUSE THE PATIENT IS WANTING TO LEAVE. BLAIRE CRUZ FOR DR OSBORN WENT AND SPOKE TO THE PATIENT AND DISCHARGED HIM. IT WAS EXPLAINED TO BOTH THE PATIENT AND GUARD THAT IT WILL TAKE A BIT OF TIME TO COMPLETE ALL THE PAPERWORK, BOTH STATED UNDERSTANDING
--- NOTE | 2019-04-30 10:41 | NUR ---
CALLED AND SPOKE TO DR MAX, HE ENTERED THE NPO/ERCP ORDER ON THE WRONG PATIENT, HE STATED "I WILL GO IN AND CHANGE/CANCEL THAT"
--- NOTE | 2019-04-30 15:10 | MORECARE ---
CASE MANAGEMENT DISCHARGE SUMMARY PATIENT: DARSHAN JUAREZ UNIT: [id number] ADM DATE: 04/27/19 AGE: 63 : 57 SEX: M ROOM/BED: D.2135 AUTHOR: CLAIREDOC PHYSICIAN: REFERRING PHYSICIAN: HERON OSBORN MD DATE OF SERVICE: 04/30/19 Discharge Plan Patient Name: DARSHAN JUAREZ Facility: [facility]:[place] : 1955 Planned Disposition: Court\Law Enforcement Anticipated Discharge Date: 04/30/19 Discharge Date: 04/30/2019 Expected LOS: 3 Initial Reviewer: [id number] Initial Review Date: 04/27/2019 Generated: 04/30/19 4:09 pm Comments DCP- Discharge Planning Updated by HOLA: Nik Nixon on 04/30/19 8:[address] Patient Name: DARSHAN JUAREZ Encounter No: [id number] : 1955 Primary Insurance: MEDICAID LONGTERM PENDING Anticipated DC Date: Planned Disposition: Court\Law Enforcement External Planned Provider: [facility], [facility] DISCHARGE PLANNING NOTE: CM MET WITH PT AND GUARD IN ROOM. PT REPORTS CURRENT INCARCERATION AT [facility] [place] WHERE HE RECEIVES DIALYSIS ON SATURDAY, SATURDAY, SATURDAY SCHEDULE. PT WILL RETURN AT DISCHARGE. [facility] TO ARRANGE TRANSPORTATION AT DISCHARGE. NO NEEDS NOTED AT THIS TIME. PT DENIES DISCHARGE NEEDS. PT REPORTS BEING READY TO DISCHARGE FROM HOSPITAL. CM EXPLAINED THAT THE DOCTOR WOULD SEE PT TODAY AND DISCUSS TREATMENT AND PLANNED DISCHARGE WITH HIM. PT REPORTS UNDERSTANDING. PT TO DISCHARGE BACK TO [facility] TO ARRANGE TRANSPORTATION AT DISCHARGE. CM TO FOLLOW AND ASSIST NEEDED. NIK NIXON, CASE MANAGEMENT DCPIA - Discharge Planning Initial Assessment Updated by [id number]: Nik Nixon on 04/30/19 9:26 am * Is the patient Alert and Oriented? Yes * How many steps to enter\exit or inside your home? NONE * PCP [facility], [facility] [place] * Pharmacy [facility] * Preadmission Environment Other * Other Environment [facility] * Facility Name [facility] * ADLs Independent * Equipment None * Other Equipment NONE * List name and contact numbers for known caregivers / representatives who currently or will assist patient after discharge: [facility] [place], * Verbal permission to speak to the caregivers and representatives has been obtained from the patient. N/A * Community resources currently utilized Other * Please name any agencies selected above. [facility], [facility], [facility] * Additional services required to return to the preadmission environment? No * Can the patient safely return to the preadmission environment? Yes * Has this patient been hospitalized within the prior 30 days at any hospital? No Last DP export: 04/30/19 8:33 a Patient Name: DARSHAN JUAREZ Page [id number] at 1510 All edits/amendments must be made on the electronic document DICTATION DATE: 04/30/19 1509 INDUSTRIAL ECOLOGY TECHNICIAN: MARY 04/30/19 1509 RPT#: [id number] DC DATE:04/30/19 STATUS: DIS IN [facility] [address] [place] [address] END OF REPORT
== END 2019-04-30 12:35 | DRG 377 ==
LOC: D.ER 17:49 → D.M2 20:12
PROVIDERS: Emergency Medicine; Family Medicine; ADMIT Internal Medicine Nephrology; ATTEND Internal Medicine Nephrology
PROC: 5A1D70Z Performance of Urinary Filtration, Intermittent, Less than 6 Hours Per Day (ICD-10-PCS; principal; 2019-04-28)
DX: K92.0 Hematemesis (principal); N18.6 End stage renal disease; I12.0 Hypertensive chronic kidney disease with stage 5 chronic kidney disease or end stage renal disease; E11.22 Type 2 diabetes mellitus with diabetic chronic kidney disease; I25.10 Atherosclerotic heart disease of native coronary artery without angina pectoris; J44.9 Chronic obstructive pulmonary disease, unspecified; D63.1 Anemia in chronic kidney disease